=== PATIENT | female | born 1970 | race Caucasian/White ===

== ENCOUNTER → 2016-08-07 | Outpatient (CLI) | payer SELFPAY ==
--- NOTE | 2016-08-07 13:01 | US ---
EXAM DESCRIPTION: Thyroid CLINICAL HISTORY: 45 years Female, THYROID NODULE, HYPOTHYROIDISM COMPARISON: February 2016. TECHNIQUE: Grayscale and color Doppler imaging of the thyroid gland was performed. Static images were saved to the patient's medical record. FINDINGS: The right thyroid lobe measures 4.3 cm craniocaudal, the left measures 3.4 cm craniocaudal. The isthmus measures 2 mm in the AP dimension. The thyroid gland is normal in echogenicity. There is a small 4 mm nodule seen within the lower pole of the left thyroid lobe. IMPRESSION: All findings are unchanged when compared to prior study from February 08, 2016. There remains a tiny 4 mm left lower lobe thyroid nodule. Electronically signed by: Andrew Garcia MD 08/07/2016 1:00 PM SCRUM COACH
== END | disposition home or self-care (01) ==
LOC: US 08:55
PROVIDERS: ATTEND Family Medicine
DX: E04.1 Nontoxic single thyroid nodule (principal); E03.9 Hypothyroidism, unspecified

== ENCOUNTER → 2016-09-15 | Outpatient (CLI) | payer OTHER | LOC: RAD 08:06 | PROVIDERS: ATTEND Surgery | DX: Z12.31 Encounter for screening mammogram for malignant neoplasm of breast (principal) ==

== ENCOUNTER 2017-09-06 03:07 | Emergency (ER) | payer OTHER ==
[2017-09-06] MEDS ORDERED: ONDANSETRON ODT 8 MG TAB SL ONE (03:36)
[2017-09-06] MEDS ORDERED: SODIUM CHLORIDE 0.9% 1000ML 1,000 ML IVS ONE (03:36)
[2017-09-06] MEDS ORDERED: MORPHINE SULFATE INJ 10 MG/ML VIAL IV ONE ×2 (03:36→04:25)
[2017-09-06 04:00] VITALS: TEMP 97.6
[2017-09-06] MEDS ORDERED: KETOROLAC TROMETHAMINE INJ 30 MG/ML VIAL IM ONE (04:24)
[2017-09-06] MEDS ORDERED: KETOROLAC TROMETHAMINE INJ 30 MG/ML VIAL IV ONE (04:46)
--- NOTE | 2017-09-06 05:08 | CT ---
CT abdomen and pelvis without contrast on 09/06/2017 CLINICAL INDICATION: Acute onset right upper quadrant pain, vomiting TECHNIQUE: Multiple axial images are obtained throughout the abdomen and pelvis without the administration of contrast. This exam was performed according to our departmental dose-optimization program, which includes automated exposure control, adjustment of the mA and/or kV according to patient size and/or use of iterative reconstruction technique. Total DLP is 1088.86 mGy*cm. COMPARISON: None FINDINGS: Abdomen: There is minimal basilar atelectasis. There is mild right hydronephrosis and hydroureter to the level of a 2 mm right UVJ stone. There is a tiny nonobstructing stone in the lower pole of the right kidney. There are no other ureteral stones. The unenhanced solid abdominal organs are otherwise unremarkable. There is no abdominal adenopathy. There is no free fluid or free air within the abdomen. The abdominal portion of the GI tract is unremarkable. Pelvis: The patient is status post hysterectomy. There is no free fluid in the pelvis. There is no pelvic adenopathy. The pelvic portion of the GI tract including the appendix is unremarkable. No acute bony abnormality is noted. IMPRESSION: 1. Mild right hydronephrosis and hydroureter to the level of a 2 mm right UVJ stone. 2. Tiny nonobstructing right renal stone. Electronically signed by: Yves Castlelanos 09/06/2017 5:06 AM CDT
--- NOTE | 2017-09-06 05:30 | ED.PDOC ---
History of Present Illness - General Chief Complaint: Problem Stated Complaint: R Flank Pain Time Seen by Provider: 09/06/17 03:31 Source: patient Exam Limitations: no limitations - History of Present Illness Initial Comments: the patient is a 46-year-old female presented to the emergency room secondary to right flank and abdominal pain that has been mild and intermittent over the last 2 days until tonight approximately 3 or 4 hours ago when the pain became severe. She had one episode of nausea and vomiting when the pain became severe. It is cramping and colicky in nature. She has not had any problems with eating food earlier today or yesterday. No fevers. No urinary symptoms. No dysuria or frequency. Timing/Duration: unsure Severity: moderate Improving Factors: nothing Worsening Factors: nothing Associated Symptoms: loss of appetite, nausea/vomiting Allergies/Adverse Reactions: Allergies Sulfamethoxazole w/Trimethoprim [From Bactrim] Adverse Reaction (Verified 07:03) Makes patient nauseated Home Medications: Ambulatory Orders Fluoxetine HCl [PROzac] 20 mg PO 03/18/16 Levothyroxine Sodium PO DAILY 03/18/16 Omeprazole Magnesium [Prilosec] 1 ea PO DAILY 09/06/17 Tamsulosin HCl [Flomax] 0.4 mg PO DAILY #7 cap 09/06/17 Review of Systems - Review of Systems Constitutional: States: no symptoms reported EENTM: States: no symptoms reported Respiratory: States: no symptoms reported Cardiology: States: no symptoms reported Gastrointestinal/Abdominal: States: abdominal pain Genitourinary: States: no symptoms reported Musculoskeletal: States: back pain Skin: States: no symptoms reported Neurological: States: no symptoms reported Endocrine: States: no symptoms reported All other Systems: No Change from Baseline Past Medical History (General) - Patient Medical History Hx Seizures: No Hx Stroke: No Hx Dementia: No Hx Asthma: No Hx of COPD: No Hx Cardiac Disorders: No Hx Congestive Heart Failure: No Hx Pacemaker: No Hx Hypertension: No Hx Thyroid Disease: Yes - Takes meds Hx Diabetes: No Hx Gastroesophageal Reflux: No Hx Renal Disease: No Hx Cancer: No Hx of HIV: No Hx Hepatitis C: No Hx MRSA: No Surgical History: Hysterectomy - Vaccination History Hx Tetanus, Diphtheria Vaccination: Yes Hx Influenza Vaccination: No Hx Pneumococcal Vaccination: No Immunizations Up to Date: No - Social History Hx Tobacco Use: No Hx Alcohol Use: No Hx Substance Use: No Hx Substance Use Treatment: No Hx Depression: Yes - Takes Prozac (generic) Feels Threatened In Home Enviroment: No Feels Threatened In a Relationship: No Hx Physical Abuse: No Hx Emotional Abuse: No Hx Suspected Abuse: No - Female History Patient is a Female of Child Bearing Age (10 -59 yrs old): Yes - Triage Comment ED Triage Comment: Pt crying with pain - holding R side. Family Medical History - Family History Mother Family History: No Known Physical Exam - Physical Exam General Appearance: Alert, Anxious, Obvious distress Eye Exam: bilateral normal Ears, Nose, Throat: hearing grossly normal, normal ENT inspection, normal pharynx Neck: full range of motion, supple Respiratory: lungs clear, normal breath sounds, no respiratory distress, no accessory muscle use Cardiovascular/Chest: normal peripheral pulses, regular rate, rhythm, no edema Peripheral Pulses: radial,right: 2+, radial,left: 2+, dorsalis pedis,right: 2+, dorsalis pedis,left: 2+ Gastrointestinal/Abdominal: non tender, soft Rectal Exam: deferred Back Exam: CVA tenderness (R) Extremity: normal range of motion, non-tender, normal inspection, no pedal edema , normal capillary refill Neurologic: instrument adjuster II-XII nml as tested, alert, normal mood/affect, oriented x 3 Skin Exam: normal color Comments: Vital Signs - 24 hr 09/06/17 03:12 Temperature 97.6 F Pulse Rate [ 71 Apical] Respiratory 16 Rate Blood Pressure 137/56 [Left Arm] O2 Sat by Pulse 100 Oximetry Progress - Progress Progress: 09/06/17 05:33 the patient is a 46-year-old female presenting to the emergency room secondary to symptoms caused from a right sided 2 mm kidney stone that is almost to the bladder. She has received some pain medications as well as nausea medications and some IV fluids. She did receive her first dose of Flomax. She'll be written for 7 days of Flomax. She can additionally take some ibuprofen to help reduce irritation. She does need to increase her fluid intake. ER warnings were given for any significant worsening. She should follow up with her primary care doctor for a repeat urinalysis in approximately one week. - Results/Orders Results/Orders: Laboratory Tests 09/06/17 09/06/17 09/06/17 03:30 03:37 03:37 WBC 7.0 RBC 4.49 Hgb 13.4 Hct 39.9 MCV 89.0 MCH 29.9 MCHC 33.6 RDW 13.0 Plt Count 214 MPV 9.6 Absolute Neuts (auto) 4.70 Absolute Lymphs (auto) 1.90 Absolute Monos (auto) 0.40 Absolute Eos (auto) 0.00 Absolute Basos (auto) 0.10 Neutrophils % 66.5 Lymphocytes % 26.3 Monocytes % 5.7 Eosinophils % 0.7 L Basophils % 0.8 Sodium 139 Potassium 4.0 Chloride 105 Carbon Dioxide 26 Anion Gap 12.0 BUN 17 Creatinine 0.68 BUN/Creatinine Ratio 25.0 H Random Glucose 108 H Serum Osmolality 279.6 Calcium 8.9 Total Bilirubin 1.0 AST 27 ALT 19 Alkaline Phosphatase 86 Creatine Kinase 96 CK-MB (CK-2) 1.2 CK-MB (CK-2) % Not Reportable Troponin I < 0.02 Serum Total Protein 7.7 Albumin 4.3 Globulin 3.4 Albumin/Globulin Ratio 1.3 Amylase 47 Lipase 18 L Serum HCG, Qual Urine Color Yellow Urine Appearance Clear Urine pH 5.0 Ur Specific Stevens >= 1.030 Urine Protein Negative Urine Glucose (UA) Negative Urine Ketones Trace Urine Blood Moderate H Urine Nitrite Negative Urine Bilirubin Negative Urine Urobilinogen 0.2 Ur Leukocyte Esterase Negative Urine RBC 1-3 Urine WBC 1-3 Ur Epithelial Cells 40-50 Urine Bacteria 1+ Urine Mucus Moderate 09/06/17 03:37 WBC RBC Hgb Hct MCV MCH MCHC RDW Plt Count MPV Absolute Neuts (auto) Absolute Lymphs (auto) Absolute Monos (auto) Absolute Eos (auto) Absolute Basos (auto) Neutrophils % Lymphocytes % Monocytes % Eosinophils % Basophils % Sodium Potassium Chloride Carbon Dioxide Anion Gap BUN Creatinine BUN/Creatinine Ratio Random Glucose Serum Osmolality Calcium Total Bilirubin AST ALT Alkaline Phosphatase Creatine Kinase CK-MB (CK-2) CK-MB (CK-2) % Troponin I Serum Total Protein Albumin Globulin Albumin/Globulin Ratio Amylase Lipase Serum HCG, Qual Negative Urine Color Urine Appearance Urine pH Ur Specific Stevens Urine Protein Urine Glucose (UA) Urine Ketones Urine Blood Urine Nitrite Urine Bilirubin Urine Urobilinogen Ur Leukocyte Esterase Urine RBC Urine WBC Ur Epithelial Cells Urine Bacteria Urine Mucus CT scan of abdomen and pelvis without contrast shows a 2 mm stone at the right ureteropelvic junction. There is mild proximal hydronephrosis. Departure - Departure Clinical Impression: Ureterolithiasis Disposition: Discharge to Home or Self Care Condition: Fair Departure Forms: ED Discharge - Pt. Copy, Patient Portal Self Enrollment Instructions: DI for Kidney Stones Diet: regular diet Activity: increase activity as tolerated Referrals: Hilton Arndt MD [Primary Care Provider] - 1-2 Weeks Prescriptions: Tamsulosin HCl [Flomax] 0.4 mg PO DAILY #7 cap Home Medications: Ambulatory Orders Fluoxetine HCl [PROzac] 20 mg PO 03/18/16 Levothyroxine Sodium PO DAILY 03/18/16 Omeprazole Magnesium [Prilosec] 1 ea PO DAILY 09/06/17 Tamsulosin HCl [Flomax] 0.4 mg PO DAILY #7 cap 09/06/17 Additional Instructions: the patient is a 46-year-old female presenting to the emergency room secondary to symptoms caused from a right sided 2 mm kidney stone that is almost to the bladder. She has received some pain medications as well as nausea medications and some IV fluids. She did receive her first dose of Flomax. She'll be written for 7 days of Flomax. She can additionally take some ibuprofen to help reduce irritation. She does need to increase her fluid intake. ER warnings were given for any significant worsening. She should follow up with her primary care doctor for a repeat urinalysis in approximately one week.
[2017-09-06] MEDS ORDERED: TAMSULOSIN 0.4 MG CAP PO ONE (05:31)
[2017-09-06 05:55] VITALS: BP 129/75; O2SAT 97
== END 2017-09-06 05:59 | disposition home or self-care (01) ==
LOC: ER 03:07
DX: N13.2 Hydronephrosis with renal and ureteral calculous obstruction (principal); E07.9 Disorder of thyroid, unspecified; F32.9 Major depressive disorder, single episode, unspecified; Z79.899 Other long term (current) drug therapy
CPT/HCPCS: 36415; 74176; 80053; 81001; 82150; 82550; 82553; 83690; 84484; 84703; 85025; J1885; J2270; J7030

== ENCOUNTER → 2017-10-15 | Outpatient (CLI) | payer OTHER ==
--- NOTE | 2017-10-15 11:32 | RAD ---
EXAM DESCRIPTION: Ankle,Right 3 Views CLINICAL HISTORY: 46 years, Female, INJURY OF ANKLE COMPARISON: None. TECHNIQUE: AP/lateral/oblique of the ankle FINDINGS: Three views of the right ankle demonstrate the mortise well-maintained with no evidence of fracture or dislocation or osteonecrosis. Localized soft tissue swelling is not apparent. Mild plantar calcaneal spurring is evident. IMPRESSION: 1. Negative right ankle three views. Electronically signed by: Hilton Marques MD 10/15/2017 11:31 AM CDT
== END ==
LOC: RAD 10:19
DX: S99.911A Unspecified injury of right ankle, initial encounter (principal)

== ENCOUNTER → 2018-03-19 | Outpatient (CLI) | payer OTHER ==
--- NOTE | 2018-03-19 10:43 | US ---
THYROID ULTRASOUND CLINICAL INFORMATION: Thyroid nodule TECHNIQUE: Sonographic survey of the thyroid gland was performed and account services representative images recorded. COMPARISON: 08/07/2016 FINDINGS: Thyroid size: Right lobe of thyroid gland measures 4.3 x 1.4 x 1.2 cm. Left lobe measures 3.7 x 1.1 x 1.2 cm. Thyroid isthmus measures 2 mm. Texture: Slightly heterogeneous. Estimated total number of nodules >/=1 cm: 0 Number of spongiform nodules >/=2 cm not described below (TR1): 0 Number of mixed cystic and solid nodules >/=1.5 cm not described below (TR2): 0 Nodule #: #: 1: Maximum size: 0.4 cm; All dimensions 0.4 x 0.3 x 0.2 cm Location: left; lower Composition: cystic/almost completely cystic (0) Echogenicity: hypoechoic (2) Shape: not [id number] (0) Margins: ill-defined (0) Echogenic foci: none (0) ACR TI-RADS total points: 2. ACR TI-RADS risk category: TR2 (2 points) ACR TI-RADS recommendation: No further follow-up IMPRESSION: 1. Subcentimeter nodule in the left lobe of the thyroid gland, unchanged from prior. No further follow-up imaging recommended. ACR TI-RADS recommendations: TR5 (>/=7 points) - FNA if >/=1 cm, follow-up if 0.5 - 0.9 cm every year for 5 years TR4 (4-6 points) - FNA if >/=1.5 cm, follow-up if 1 - 1.4 cm in 1, 2, 3 and 5 years TR3 (3 points) - FNA if >/=2.5 cm, follow -up if 1.5 - 2.4 cm in 1, 3 and 5 years TR2 (2 points) and TR1 (0 points) - No FNA or follow-up * ACR TI-RADS recommends that no more than two nodules with the highest ACR TI-RADS total point should be biopsied and no more than four nodules should be followed. Electronically signed by: Giorgio Olivarez MD 03/19/2018 10:42 AM CDT
--- NOTE | 2018-03-19 14:44 | MAM ---
EXAM DESCRIPTION: 3D Screening BILATERAL : Digital Mammography. CLINICAL HISTORY: 47 years Female SCREENING . No complaints. No personal history or family history of breast cancer. Remote family history of ovarian cancer. Childbirth. Postmenopausal 15 years. No HRT.. Lifetime risk of developing breast cancer (Tyrer-Cuzick model)(%): 10.6 COMPARISON: 2-D digital screening bilateral study 09/15/2016. TECHNIQUE: Bilateral CC and MLO projection full-field images, Digital tomosynthesis mammographic technique. Bilateral digital 2-D full-field MLO images. CAD not utilized FINDINGS: The breast parenchymal density pattern is: Scattered areas of fibroglandular density. No skin thickening or nipple retraction. Bilateral solitary microcalcifications. Bilateral axillary lymph nodes. Denser fibroglandular tissues are in the central breasts bilaterally. No new focal, stellate mass or density, focal asymmetry , and no suspicious microcalcifications bilaterally. Stable mammograms compared to prior study. Taking into account, differences in mammographic technique. IMPRESSION: Benign exam. BIRAD CATEGORY: 2 BENIGN FINDINGS. RECOMMENDATIONS: FOLLOW UP: Routine digital bilateral screening, one year interval from March 2018. Written communication explaining the IMPRESSION and follow-up, will be mailed to the patient and referring health care provider. According to the [employer], yearly mammograms are recommended starting at age 40 and continuing as long as a woman is in good health. Any breast change noted on a breast self-exam should be reported promptly to the patient's healthcare provider. Breast MRI is recommended for women with an approximately 20-25% or greater lifetime risk of breast cancer, including women with a strong family history of breast or ovarian cancer and women who have been treated for Hodgkin's disease. A negative mammographic report should not delay tissue diagnosis in patients with significant clinical history or physical findings. Extremely dense breast tissue limits the sensitivity of digital mammography. Electronically signed by: Venancio Shah MD 03/19/2018 2:42 PM CDT
== END ==
LOC: MAMMO 08:30
PROVIDERS: ATTEND Family Medicine
DX: Z12.31 Encounter for screening mammogram for malignant neoplasm of breast (principal); E04.1 Nontoxic single thyroid nodule

== ENCOUNTER → 2018-04-20 | Outpatient (CLI) | payer OTHER ==
--- NOTE | 2018-04-20 17:09 | RAD ---
EXAM DESCRIPTION: Chest,2 Views CLINICAL HISTORY: URI COMPARISON: None TECHNIQUE: PA/lateral FINDINGS: There is no acute appearing cardiac or pulmonary abnormality. Heart size is normal with normal pulmonary vascularity. No pleural effusion or pneumothorax. Lungs are clear with no consolidating infiltrate. Lateral view shows intact sternum and T-spine. IMPRESSION: No acute process is identified in the chest. 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
== END ==
LOC: YCFC.O 16:26
PROVIDERS: ATTEND Family Medicine
DX: J06.9 Acute upper respiratory infection, unspecified (principal)

== ENCOUNTER → 2018-07-28 | Outpatient (CLI) | payer OTHER | LOC: LAB.O 12:22 | PROVIDERS: ATTEND Family Medicine | DX: Z00.00 Encounter for general adult medical examination without abnormal findings (principal); N39.0 Urinary tract infection, site not specified; E03.9 Hypothyroidism, unspecified ==

== ENCOUNTER → 2018-09-07 | Outpatient (CLI) | payer OTHER ==
--- NOTE | 2018-09-07 15:39 | RAD ---
History: Radiculopathy. Cervical spine: AP and lateral views are obtained. Lateral view demonstrates anatomic alignment C1-C6. Posterior osteophyte at C3-C4 with uncovertebral hypertrophy on the right. The prevertebral soft tissues appear normal. Odontoid view shows no lateral displacement of C1. IMPRESSION: Cervical spondylosis. Follow-up imaging as indicated clinically. Electronically signed by: Paz Dunn MD 09/07/2018 3:36 PM CDT Workstation: [id number]
== END ==
LOC: YCFC.O 10:02
PROVIDERS: ATTEND Family Medicine
DX: M54.12 Radiculopathy, cervical region (principal); M47.892 Other spondylosis, cervical region

== ENCOUNTER → 2018-10-12 | Outpatient (CLI) | payer OTHER ==
--- NOTE | 2018-10-12 14:01 | MRI ---
EXAM DESCRIPTION: Cervical Spine: MRI. CLINICAL HISTORY: 47 years Female RADICULOPATHY CERVICAL REGION COMPARISON: Cervical spine radiographs 09/07/2018. TECHNIQUE: Multiplanar, high-field MRI, multiple sequences, non-contrast Cervical spine. FINDINGS: C3-C4: Disc desiccation and posterior disc space loss. Posterior broad-based disc bulge abutting the cord. Uncinate spur on the right with mild neural foraminal narrowing. Moderate canal narrowing and left neuroforamen patent. Facet joints unremarkable. C4-C5: Disc desiccation posterior disc space loss. Posterior broad-based disc bulge abutting the cord. Left uncinate spur and minimal neural foraminal narrowing. Mild canal narrowing and right neuroforamen patent. Bilateral facet joints unremarkable. C6-C7: Disc desiccation with disc space maintained. Left uncinate spur and 4 mm protrusion of the disc into the left neural foramen with stenosis. Mild narrowing of the right neural foramen. Canal is patent. Normal signal in the C2-C3 disc, C5-C6 disc, C7-T1 disc, and T1-T2 disc with no bulging. Disc spaces preserved. Canal and neural foramina are patent. Facet joints are unremarkable. Spinal alignment minimal lordosis.. No cord compression or cord edema. Atlantoaxial joint negative.. Base of the cerebellar tonsils is at the level of the foramen magnum. Paravertebral soft tissues negative. Vertebral bodies are not compressed at any level. Otherwise normal marrow signal in the remaining vertebral bodies and the posterior elements. IMPRESSION: 1. Protrusion of the C6-C7 disc into the left foramen with left uncinate spur resulting in neural foraminal stenosis. Correlate for left C7 radiculopathy. 2. Uncinate spurs resulting in mild neural foraminal narrowing at C3-4 and C4-5. Please see details above. Electronically signed by: Venancio Shah MD 10/12/2018 1:59 PM CDT
== END ==
LOC: MRI 08:00
PROVIDERS: ATTEND Family Medicine
DX: M50.123 Cervical disc disorder at C6-C7 level with radiculopathy (principal); M50.120 Mid-cervical disc disorder, unspecified level

== ENCOUNTER → 2019-05-13 | Outpatient (CLI) | payer OTHER | LOC: LAB.O 09:56 | PROVIDERS: ATTEND Family Medicine | DX: E03.9 Hypothyroidism, unspecified (principal); E66.9 Obesity, unspecified; R53.83 Other fatigue; Z13.220 Encounter for screening for lipoid disorders ==

== ENCOUNTER → 2019-05-17 | Outpatient (CLI) | payer OTHER ==
--- NOTE | 2019-05-19 16:55 | MAM ---
EXAM DESCRIPTION: 3D Screening BILATERAL : Digital Mammography. CLINICAL HISTORY: 48 years Female ANNUAL SCREENING . No complaints. No personal history of breast cancer. Remote family history of breast cancer. Menarche age 15. Childbirth age 27. Postmenopausal age 32.. No HRT. Lifetime risk of developing breast cancer (Tyrer-Cuzick model)(%): 10.5. COMPARISON: Bilateral digital screening breast tomosynthesis 19 March 2018 and 2-D digital screening bilateral mammography 15 September 2016. TECHNIQUE: Bilateral CC and MLO projection full-field images, digital tomosynthesis mammographic technique. Bilateral digital 2-D full-field MLO images. CAD not available for tomosynthesis or 2-D images. FINDINGS: The breast parenchymal density pattern is: Scattered areas of fibroglandular density. No skin thickening or nipple retraction. Bilateral axillary lymph nodes. Architectural distortion and focal asymmetry in the middle third of the left breast at the 9:00 position approximately 10 cm from the nipple. Not well seen on the prior study. Stable architectural distortion in the middle third of the left breast. No new focal, stellate mass or density, focal asymmetry , and no suspicious microcalcifications left breast IMPRESSION: BI-RADS CATEGORY: 0 - INCOMPLETE- Need additional imaging evaluation. FOLLOW-UP: Recall for additional imagin-D full-field and tomosynthesis right breast LM projection. Directed left breast ultrasound.. Written communication concerning the IMPRESSION and Follow-up, will be mailed to the patient and referring health care provider. 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
== END ==
LOC: YCFC.O 11:10
PROVIDERS: ATTEND Family Medicine
DX: Z12.31 Encounter for screening mammogram for malignant neoplasm of breast (principal)

== ENCOUNTER → 2019-06-20 | Outpatient (CLI) | payer OTHER ==
--- NOTE | 2019-06-20 13:56 | US ---
EXAM DESCRIPTION: 3D Diagnostic, Bilateral (accession [id number]), Breast,Left (accession [id number]): Ultrasound CLINICAL HISTORY: 48 yearsFemaleABNORMAL MAMMOGRAM architectural distortion focal asymmetry right breast. Lifetime risk of developing breast cancer (Tyrer-Cuzick model)(%): 9.6. COMPARISON: Bilateral screening digital breast tomosynthesis 17 May 2019. TECHNIQUE: Right breast LM projection full-field images, digital tomosynthesis technique. Right breast 2-D digital full-field images: LM projection. CAD not available.. Transcutaneous scanning of the right breast utilizing amaral-scale and Doppler modes. Scanning performed by the tape folding machine operator and Dr. Shah. FINDINGS: The breast parenchymal density pattern is: Scattered areas of fibroglandular density. No skin thickening or nipple retraction . Minimal focal asymmetry but no architectural distortion in the region of interest upper outer quadrant middle third right breast. No new focal, stellate mass or density, , and no suspicious microcalcifications right breast. Ultrasound: Scanning middle third upper outer quadrant right breast. Mixed fatty and fibroglandular tissues. A moderate-sized focal area of fibroglandular tissues corresponds to the region of interest on the mammogram. No dominant solid mass or distinct cyst. No large calcifications or overlying skin changes. IMPRESSION: Benign exam. BIRAD CATEGORY: 2 BENIGN FINDINGS. RECOMMENDATIONS: FOLLOW UP: Return to routine digital bilateral mammographic screening, one year interval from May 2019. Written communication explaining the IMPRESSION and follow-up, will be mailed to the patient and referring health care provider. The FINDINGS and the FOLLOW-UP plan were reviewed in person with the patient after the examination. According to the [employer], yearly mammograms are recommended starting at age 40 and continuing as long as a woman is in good health. Any breast change noted on a breast self-exam should be reported promptly to the patient's healthcare provider. Breast MRI is recommended for women with an approximately 20-25% or greater lifetime risk of breast cancer, including women with a strong family history of breast or ovarian cancer and women who have been treated for Hodgkin's disease. A negative mammographic report should not delay tissue diagnosis in patients with significant clinical history or physical findings. Extremely dense breast tissue limits the sensitivity of digital mammography. Electronically signed by: Venancio Shah MD 06/20/2019 1:51 PM [facility]
== END ==
LOC: US 10:32
PROVIDERS: ATTEND Family Medicine
DX: R92.8 Other abnormal and inconclusive findings on diagnostic imaging of breast (principal)
CPT/HCPCS: 76641; 77066; G0279

== ENCOUNTER → 2019-11-01 | Outpatient (CLI) | payer OTHER | LOC: LAB.O 12:18 | PROVIDERS: ATTEND Family Medicine | DX: E03.9 Hypothyroidism, unspecified (principal) ==

== ENCOUNTER 2020-04-25 16:13 | Emergency (ER) | payer OTHER ==
[2020-04-25 16:36] VITALS: TEMP 97.5
[2020-04-25] MEDS ORDERED: SODIUM CHLORIDE 0.9% 500ML 500 ML IVS ONE (16:39)
[2020-04-25] MEDS ORDERED: MORPHINE SULFATE INJ 10 MG/ML VIAL IV ONE (16:39)
[2020-04-25] MEDS ORDERED: ONDANSETRON INJ 4 MG/2 ML VIAL IV ONE (16:39)
--- NOTE | 2020-04-25 16:42 | ED.PDOC ---
History of Present Illness - General Chief Complaint: GI Problem Stated Complaint: vomiting,fever,chills Time Seen by Provider: 04/25/20 16:14 Source: patient, RN notes reviewed, Vital Signs reviewed - History of Present Illness Initial Comments: 49 yo F with Right upper tooth pain x 4 days, saw dentist yesterday who put her on augmentin. States she can't eat or drink anything so came to the ER for ev aluation. States today she only takes sips of water and ate a bag of chips. no fever, no throat pain. Allergies/Adverse Reactions: Allergies Sulfamethoxazole w/Trimethoprim [From Bactrim] Adverse Reaction (Verified 03/18/16 07:03) Makes patient nauseated Home Medications: Ambulatory Orders Fluoxetine HCl [PROzac] 20 mg PO 03/18/16 Levothyroxine Sodium PO DAILY 03/18/16 Omeprazole Magnesium [Prilosec] 1 ea PO DAILY 09/06/17 Tamsulosin HCl [Flomax] 0.4 mg PO DAILY #7 cap 09/06/17 Ondansetron HCl [Zofran] 4 mg PO TID PRN #15 tab 04/25/20 Review of Systems - Review of Systems Constitutional: Denies: chills, fever EENTM: States: see HPI, mouth pain. Denies: blurred vision, throat pain Respiratory: Denies: cough, short of breath Cardiology: Denies: chest pain Gastrointestinal/Abdominal: States: nausea. Denies: abdominal pain, diarrhea, vomiting Genitourinary: Denies: discharge, frequency Musculoskeletal: Denies: back pain, muscle pain Skin: Denies: rash Neurological: Denies: headache, weakness Endocrine: Denies: unexplained weight gain, unexplained weight loss Hematologic/Lymphatic: Denies: easy bleeding, easy bruising Past Medical History (General) - Patient Medical History Hx Seizures: No Hx Stroke: No Hx Dementia: No Hx Asthma: No Hx of COPD: No Hx Cardiac Disorders: No Hx Congestive Heart Failure: No Hx Pacemaker: No Hx Hypertension: No Hx Thyroid Disease: Yes Hx Diabetes: No Hx Gastroesophageal Reflux: No Hx Renal Disease: No Hx Cancer: No Hx of HIV: No Hx Hepatitis C: No Hx MRSA: No Surgical History: Hysterectomy - Vaccination History Hx Tetanus, Diphtheria Vaccination: Yes Hx Influenza Vaccination: Yes Hx Pneumococcal Vaccination: No - Social History Hx Tobacco Use: No Hx Alcohol Use: No Hx Substance Use: No Hx Substance Use Treatment: No Hx Depression: Yes - Takes Prozac (generic) Hx Physical Abuse: No Hx Emotional Abuse: No Hx Suspected Abuse: No Family Medical History - Family History Mother Family History: No Known Physical Exam - Physical Exam General Appearance: Alert, Comfortable, No apparent distress, Well Developed, Well Groomed, Well Hydrated, Well Nourished Eye Exam: bilateral normal Ear Exam: bilateral ear: auricle normal, canal normal, TM normal Nasal Exam: normal inspection Throat Exam: normal mouth inspection, pharynx normal, dental tenderness, other - no swelling, erythema or drainage. pain at front crown . 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 Pain improved, patient discharged home in stable condition. - Results/Orders Results/Orders: The data reviewed when caring for this patient included: nurse notes, prior records, etc. The history and assessments from nurses notes were reviewed and considered, and the patient's home medication list was also reviewed and considered. My assessment and the results of testing completed here in the ED were discussed with the patient. All questions were answered, and they express understanding of my assessment and the plan. They have been instructed to return if their symptoms worsen, and have been asked to follow up with their dentist to recheck today's presenting complaint. return precautions given. I have reviewed medication, benefits, alternatives and side effects. Patient decided to proceed with medication.Dentist sent in alternative antibiotic today. Jeri Martinez DO #[id number] Departure - Departure Clinical Impression: Pain, dental, Dental abscess Nausea and vomiting Qualifiers: Vomiting type: unspecified Vomiting Intractability: non-intractable Qualified Code(s): R11.2 - Nausea with vomiting, unspecified Time of Disposition: 17:10 Disposition: Discharge to Home or Self Care Departure Forms: ED Discharge - Pt. Copy, Patient Portal Self Enrollment Instructions: Dental Pain (DC) Diet: resume usual diet Activity: increase activity as tolerated Referrals: Ori Martinez MD [Primary Care Provider] - 1-5 Days STEPHANIE AMARAL DDS [Dentist] - 1-2 Days Prescriptions: Ondansetron HCl [Zofran] 4 mg PO TID PRN #15 tab PRN Reason: Vomiting Home Medications: Ambulatory Orders Fluoxetine HCl [PROzac] 20 mg PO 03/18/16 Levothyroxine Sodium PO DAILY 03/18/16 Omeprazole Magnesium [Prilosec] 1 ea PO DAILY 09/06/17 Tamsulosin HCl [Flomax] 0.4 mg PO DAILY #7 cap 09/06/17 Ondansetron HCl [Zofran] 4 mg PO TID PRN #15 tab 04/25/20
[2020-04-25 18:27] VITALS: BP 125/78; O2SAT 98
== END 2020-04-25 18:26 | disposition home or self-care (01) ==
LOC: ER 16:13
DX: K04.7 Periapical abscess without sinus (principal); R11.2 Nausea with vomiting, unspecified; F32.9 Major depressive disorder, single episode, unspecified; E07.9 Disorder of thyroid, unspecified; Z79.899 Other long term (current) drug therapy; Z88.2 Allergy status to sulfonamides
CPT/HCPCS: J2270; J2405; J7040